=== PATIENT | male | born 1955 | race Caucasian/White ===

== ENCOUNTER 2024-12-05 14:00 | Outpatient (RCR) | payer SELFPAY ==
[2024-11-29 13:20] VITALS: BP 136/73; PULSE 79; RESP 16; TEMP 35.9; BMI 27.7
--- NOTE | 2024-11-30 20:50 | PCM.WC.HP ---
History of Present Illness Date of Service: 11/29/24 Chief Complaint: Open wound of the right pretibial surface History of Wound: This is a 69-year-old generally healthy male who was in his normal state of health until mid September 2024. He sustained an injury to the right pretibial surface as a result of a fall off of a ladder. As result of the fall, he sustained trauma to the right pretibial surface. The patient did not seek medical attention until approximately one week later. One week following his injury, the patient presented to [facility] Emergency Department for evaluation due to increasing pain at the site. The skin was largely intact, but for ecchymosis and a superficial laceration, and a large amount of subcutaneous swelling and fluctuance. Initial clinical impression was that of the subcutaneous hematoma. A CT scan was obtained, which demonstrated soft tissue swelling and did not demonstrate any evidence of necrotizing fasciitis, the underlying bone was satisfactory. Blood work was obtained, the results of which are as follows: White blood count 8.1, hemoglobin 15.1, hematocrit 43.4, platelets 287,000, sodium 139, potassium 3.6, chloride 104, BUN 18, creatinine 0.85, calcium 9.5, glucose 99, AST 15, ALT 26, alkaline phosphatase 98, total protein 7.4, albumin 3.9, total bilirubin 0.8. The patient then underwent incision and drainage of the site under local anesthesia. A 2 cm incision was made over the most fluctuant area of the wound, and a small amount of blood and blood clot were removed. The cavity was then packed with about 12 inches of quarter inch iodoform, and a dressing was applied. Patient was advised to remain hospitalized, but elected to return home. A prescription was issued for oral doxycycline for a 7-day course. The patient and his have been using homeopathic products and treatment for the patient's wound. They describe the use of herbs and blood poisoning salve. The patient is not a smoker he has a history of right inguinal hernia repair. He denies a history of myocardial infarction, congestive heart failure, hypertension, cerebrovascular accident, diabetes mellitus, pulmonary disease, renal disease, and thyroid disease. 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 Home Medications ?Medication ?Instructions ?Recorded ?Last Taken ?Type doxycycline hyclate 100 mg tablet 100 mg PO BID 11/24/24 Unknown History naproxen 500 mg tablet 500 mg PO BID 11/29/24 Unknown History oxycodone-acetaminophen 5 mg-325 1 tab PO Q6H PRN PRN pain 11/29/24 Unknown History mg tablet tamsulosin 0.4 mg capsule 0.4 mg PO QHS 11/29/24 Unknown History Allergy/AdvReac Type Severity Reaction Status Date / Time No Known Allergies Allergy Verified 11/29/24 13:17 Surgical History History of right inguinal hernia repair Social History Smoking Status: Never smoker Vital Signs Vital Signs Vital Signs: Weight Weight: 172 lb Body Mass Index (BMI) 27.7 Physical Exam Const alert, oriented x3, no apparent distress, average body habitus, no limitations, healthy appearing and well nourished Constitutional Narrative: The patient's BMI is 27.8. General Appearance: cooperative, comfortable, well kempt and well developed Orientation / Consciousness: awake, oriented to person, oriented to place and oriented to time Exam Limitations: no limitations HEENT normocephalic and head/scalp atraumatic Head and Scalp: normal to inspection, normocephalic and atraumatic Face and Sinus: normal facial exam Nose: external nose normal External Ear: external ears normal Eyes EOMs intact bilaterally General Eye: normal appearance of both eyes Neck full ROM Resp normal respiratory effort, normal air movement, no retractions and no use of accessory muscles Effort and Inspection: able to speak in complete sentences Extremity no calf tenderness General Extremity: Negative for clubbing or cyanosis Skin Wound Narrative: A large open wound is noted on the patient's right pretibial surface. The wound appears to extend through all layers of the dermis, subcutaneous tissue, down to muscle. There is a moderate amount of nonviable,necrotic tissue. There is no obvious sign of infection or cellulitis. Wound margins are not well beveled there is extensive undermining from the 9 o'clock position to the 3 o'clock position, and most prominent at the 1 o'clock position. Wound dimensions and undermining dimensions are documented elsewhere. The underlying muscle/fascia appear to be largely intact and devoid of significant necrosis. Neuro oriented x3, CN's II-XII intact bilaterally, moves all extremities, no focal motor deficits and no sensory deficits noted Sensorium / Orientation: awake, alert, oriented to person, oriented to place and oriented to time Speech: speech normal Psych Appearance: grossly normal and appropriate Attitude: calm Activity / Motor Behavior: appropriate eye contact Speech: normal speech Mood & Affect: euthymic mood Thought Process: normal thought process Thought Content: normal thought content Attention / Concentration: attention grossly intact Debridement Note Debridement Note Wound debrided: Right pretibial wound Laterality: Right Type of Debridement: Excisional debridement Anesthesia Used: 5% Lidocaine Gel and Cetacaine Depth: Down to and including healthy tissue and to muscle Percentage of wound debrided: 100 Instrument Used: 5mm curette Tissue Removed: Nonviable, necrotic tissue and bioburden Severity: Fat Layer Exposed Amount of bleeding with debridement: Mild Bleeding Controlled with: Compression and gauze Patient tolerated procedure: Patient tolerated procedure well Debridement Free Text: The debridement extended through all layers of the dermis, through the subcutaneous tissues, and down to muscle/fascia. A swab was obtained for aerobic and anaerobic bacterial growth. Post-Debridement Measurements and Additional Note: Post-Debridement Measurements/Treatment - Nurse 1 - General Ulcer Assessment Start: 11/29/24 13:17 Freq: Status: Active Protocol: [email or web address] Activity Type Activity Date Activity User E-sign Co-sign Detail Recorded Client Recorded Date Recorded By Document 11/29/24 13:20 [id number] 11/29/24 13:27 11/29/24 13:20 - Today's Visit Information Type of service Initial Visit Arrival Mode Ambulatory Accompanied by Patient Identification Verified (Name & Yes ) Height and Weight Height 5 ft 6 in Weight 172 lb Weight in Pounds 172.0 lbs Body Mass Index (BMI) 27.7 BMI Classification Overweight Vital Signs Temperature (97.8 F-99.1 F) 96.6 F L Temperature Source Temporal Pulse Rate (60-100) 79 Pulse Location Monitor Respiratory Rate (12-18) 16 Respiratory rate source Observation Oxygen Delivery Method Room Air Blood Pressure (90/60-120/80) 136/73 H Blood Pressure Mean 94 Source Monitor Position Semi-Fowlers Blood Pressure Location Left Arm History Since Last Visit- (Skip if this is Patient's initial visit) Left Footwear Regular Shoe Right Footwear Regular Shoe Pain Scale: 0-10 Numeric Is Patient Pain Free? No rt curran -Intensity 7 -Alleviating Factors/Interventions Medication, Medicate when due Communication Assessment Preferred language [place] Environmental Protection Economist Required No Able to Read Yes Able to Write Yes Communication Tools None Caregiver Communication Skills No Impairment Impairment Right Hearing Abillity Normal Left Hearing Abillity Normal Visual Assistive Devices Glasses Teaching Assessment Preferences Verbal,Written, Demonstration Barriers to Learning None Readiness To Learn Excellent Willingness to Engage in Self Management High Activies Readiness to Engage in Self Management High Activities Anxiety Level Calm Cooperation Cooperative Perception Coherent Interest in Health Problem Asks Questions Education Importance Acknowledges Need Does Patient Smoke tobacco or other Yes substances Smoking Status Never smoker Is Patient Diabetic No Functional Assessment Recent Decline in Ability to Perform Denies Any Declines Culture/Religion/[employer] Technical Lead Senior Developer Cultural/Religion Needs that may affect No Treatment Plan Would you allow our hospital casting and locker room servicer to No meet you for the purpose of spiritual/ emotional support? [employer] Technical Lead Senior Developer to contact place of holiness No WC - Nurse 1 - General Ulcer Measurement Start: 11/29/24 13:17 Freq: Status: Active Protocol: Activity Type Activity Date Activity User E-sign Co-sign Detail Recorded Client Recorded Date Recorded By Document 11/29/24 13:20 [id number] 11/29/24 13:27 11/29/24 13:20 Wound Center Nurse 1 #1 R Curran -Current Size (cm) - Length 3 -Current Size (cm) - Width 2.6 -Current Size (cm) - Depth 1.4 -Total Square Cm 7.8 -Date of Last Picture (Recall this 11/29/24 field) -Exudate Amt Medium -Exudate Type Serosanguineous -Wound Margin Distinct, Outline Attached -Granulation Amt Large (67-100%) -Granulation Quality [place] -Necrosis Amt Medium (34-66%) -Necrotic Tissue Type Adherent Slough -Texture (Katerin-wound Skin Appearance) Assessed -Moisture (Katerin-wound Skin Appearance) Assessed -Color (Katerin-wound Skin Appearance) Assessed, Erythema -Temperature (Katerin-wound Skin No Abnormality Appearance) (Pt Warm) -Tenderness on Palpation (Katerin-wound No Skin Appearance) -Ulcer Cleansing Soap and Water -Foul Odor after Cleansing No -Anesthetic Used 4% Lidocaine Solution - Nurse 2 - General Ulcer CM Notes Start: 11/29/24 13:17 Freq: Status: Active Protocol: Activity Type Activity Date Activity User E-sign Co-sign Detail Recorded Client Recorded Date Recorded By Document 11/29/24 14:02 [id number] 11/29/24 14:13 11/29/24 14:02 Wound Center Nurse 2 -Time 14:02 -Correct Patient Yes -Correct Side, Site, Position Yes -Correct Procedure Yes -Procedure Performed Yes -Type of Procedure Debridement -Clinical Debridement Muscle / Fascia -Tissue Removed Muscle -Post Debridement (cm) - Length 3.0 -Post Debridement (cm) - Width 2.7 -Post Debridement (cm) - Depth 1.5 -Total Square (Post) (cm) 8.10 -Area of Debridement (cm) - Length 3.0 -Area of Debridement (cm) - Width 2.7 -Total Square (Area) (cm) 8.10 -Tunneling Yes -Tunneling Position (O'clock) 12 -Tunneling Distance (cm) 1.5 -Tunneling Position #2 (O'clock) 9 -Tunneling Distance #2 (cm) 1.1 -Undermining/Tunneling Yes -Undermining/Tunneling Starts (O'clock 3 ) -Maximum Distance (cm) 1 -Undermining/Tunneling Starts #2 (O' 1 clock) -Maximum Distance #2 (cm) 3.5 -Wound/Ulcer Outcome Not Healed -Ulcer Cleansing Rinsed/ Irrigated with Saline -Foul Odor after Cleansing No -Bioengineered Tissue No -Bleeding Controlled with Pressure -Treatment Response Procedure Tolerated Well -Offloading No -Debridement - Muscle / Fascia, 1st Yes 20sq cm Pain Scale: 0-10 Numeric Is Patient Pain Free? Yes - Nurse 3 - General Ulcer D/C NN Start: 11/29/24 13:17 Freq: Status: Active Protocol: Activity Type Activity Date Activity User E-sign Co-sign Detail Recorded Client Recorded Date Recorded By Document 11/29/24 14:36 [id number] 11/29/24 14:36 11/29/24 14:36 Wound Care Center Nurse 3 #1 R Curran -Primary Dressing Applied Hysept,Nugauze, Plain 1/2in -Primary Dressing Covered/Secured with Dry Gauze,Dry Gauze & Roll Gauze,Secured with Tape -Hysept 1 -Nugauze, Plain 1/2in 1 Pain Scale: 0-10 Numeric Is Patient Pain Free? 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: CODE(S): L97.915 - Non-pressure chronic ulcer of unspecified part of right lower leg with muscle involvement without evidence of necrosis (2) Wound of right leg: CODE(S): S81.801A - Unspecified open wound, right lower leg, initial encounter QUALIFIERS: Encounter type: initial encounter Qualified Code(s): S81.801A - Unspecified open wound, right lower leg, initial encounter (3) Cellulitis of right leg: CODE(S): L03.115 - Cellulitis of right lower limb (4) History of right inguinal hernia repair: CODE(S): Z98.890 - Other specified postprocedural states; Z87.19 - Personal history of other diseases of the digestive system PLAN: Plan This is a generally healthy 69-year-old male who sustained an injury to his right pretibial surface as a result of a fall off of a ladder. He sustained blunt trauma to the area, which appears to have resulted in a sizable hematoma. The overlying skin, it appears, remained largely intact. Approximately 1 week following his injury, due to increasing pain and discomfort in the area, the patient presented to the Emergency Department at [facility], where an underlying hematoma was incised and drained. It appears as though only limited blood clots were removed from the hematoma cavity. The site was packed quarter-inch iodoform, and the patient was discharged with a one-week prescription for oral doxycycline. Since the patient's evaluation in the Emergency Department, he and his have been using homeopathic preparations topically, which they describe as herbs and blood poisoning salve. He was referred to the [facility] for definitive management. Physical examination revealed significant undermining related to the patient's wound. A culture of the wound has been obtained, and the results will be awaited. Initial management is to implement the use of half-inch Nu Gauze packing on a daily basis. The Nu Gauze is to be moistened with Dakins solution. The patient and his have been instructed in the appropriate means of application, and provided the products for initial use. The patient does not have insurance, and he has requested that management entail cost effective modalities. The patient has been instructed to elevate his lower extremities as much as possible, to minimize swelling. Elevation is to be to heart level, or higher. Activity has been encouraged. Prolonged idle sitting has been discouraged. The patient has been provide Tubigrips for daily use, which are to be donned each morning, and worn until bedtime. Because of the extensive undermining, there is concern that healing may not occur in progressive fashion by means of secondary intention. We have discussed the use of negative pressure wound therapy, a wound VAC, although the cost may be prohibitive for the patient. Alternatively, we are to seek consultation with Dr. Lico Fernandes, Plastic Surgeon, for his evaluation and recommendations. It appears as though there may be an indication for surgical unroofing of the undermined areas, which will then allow for healing by secondary intention, and facilitate the possible use cellular tissue products. Once again, expenses may be prohibitive, considering the patient's lack of health insurance. We are to await Dr. Fernandes's recommendations. Total time: 48 minutes
--- NOTE | 2024-12-01 10:28 | WC ---
PHOTO 11/29/24 RIGHT LOAIZA
[2024-12-05 14:25] VITALS: BP 120/86; PULSE 86; RESP 16; TEMP 36.5; BMI 27.7
--- NOTE | 2024-12-06 10:01 | PCM.WC.PN ---
History of Present Illness Date of Service: 12/05/24 Chief Complaint: Open wound of the right pretibial surface History of Wound: This is a 69-year-old generally healthy male who was in his normal state of health until mid September 2024. He sustained an injury to the right pretibial surface as a result of a fall off of a ladder. As result of the fall, he sustained trauma to the right pretibial surface. The patient did not seek medical attention until approximately one week later. One week following his injury, the patient presented to [facility] Emergency Department for evaluation due to increasing pain at the site. The skin was largely intact, but for ecchymosis and a superficial laceration, and a large amount of subcutaneous swelling and fluctuance. Initial clinical impression was that of the subcutaneous hematoma. A CT scan was obtained, which demonstrated soft tissue swelling and did not demonstrate any evidence of necrotizing fasciitis, the underlying bone was satisfactory. Blood work was obtained, the results of which are as follows: White blood count 8.1, hemoglobin 15.1, hematocrit 43.4, platelets 287,000, sodium 139, potassium 3.6, chloride 104, BUN 18, creatinine 0.85, calcium 9.5, glucose 99, AST 15, ALT 26, alkaline phosphatase 98, total protein 7.4, albumin 3.9, total bilirubin 0.8. The patient then underwent incision and drainage of the site under local anesthesia. A 2 cm incision was made over the most fluctuant area of the wound, and a small amount of blood and blood clot were removed. The cavity was then packed with about 12 inches of quarter inch iodoform, and a dressing was applied. Patient was advised to remain hospitalized, but elected to return home. A prescription was issued for oral doxycycline for a 7-day course. The patient and his have been using homeopathic products and treatment for the patient's wound. They describe the use of herbs and blood poisoning salve. The patient is not a smoker he has a history of right inguinal hernia repair. He denies a history of myocardial infarction, congestive heart failure, hypertension, cerebrovascular accident, diabetes mellitus, pulmonary disease, renal disease, and thyroid disease. Subjective Subjective Current encounter, 05 Dec 2024: Patient doing well overall with dressing changes. No fevers or chills. Objective Data Objective Data Vital Signs: Vital Signs Temp Pulse Resp BP O2 Del Method 97.7 F L 86 16 120/86 H Room Air 12/05/24 14:25 12/05/24 14:25 12/05/24 14:25 12/05/24 14:25 11/29/24 13:20 Oxygen Delivery Method Room Air Weight: 172 lb Body Mass Index (BMI) 27.7 Lab / Micro Data Micro: Microbiology 11/29/24 14:00 Ulcer, Decubitus - Leg, Right Gram Stain - Final 11/29/24 14:00 Ulcer, Decubitus - Leg, Right Wound Culture - Final Proteus mirabilis Klebsiella aerogenes Enterobacter cloacae complex 11/29/24 14:00 Ulcer, Decubitus - Leg, Right Anaerobic Culture - Final No anaerobic bacteria isolated. Charges/Coding Visit Charges Office Visits / Consults: 99376 OV L3 New 30min Procedures Integumentary [id number]: [id number] Mimi musc/fascia 20 sq cm/< (With 25 modifier) Physical Exam Extremity no calf tenderness General Extremity: Negative for clubbing or cyanosis Skin Wound Narrative: Right pretibial wound midshaft tibia, no exposed bone (exposed underlying fascia). No induration or fluid collections, there is necrotic material at the base. There is some undermining from the 9 o'clock position to the 3 o'clock position, and most prominent at the 1 o'clock position. The wound measures 2.9 x 2.9 cm and is 1.3 cm deep. Debridement Note Debridement Note Wound debrided: Right pretibial wound Laterality: Right Wound Grade/Stage: Stage III Type of Debridement: Excisional debridement Anesthesia Used: 4% Lidocaine Solution and - (10 cc of 1% lidocaine with 1-200,000 epinephrine) Depth: to muscle (To the fascia overlying the muscle at the base of the wound) Percentage of wound debrided: 100 Instrument Used: 7mm curette, Forceps and - (Scissors for sharp excision) Tissue Removed: Fibrinous exudate and necrotic fascia at the muscle layer Severity: Necrosis of Muscle (There is necrotic debris at the muscle level at the base of the wound) Amount of bleeding with debridement: Moderate Bleeding Controlled with: Compression and gauze Patient tolerated procedure: Patient tolerated procedure well Post-Debridement Measurements and Additional Note: Post-Debridement Measurements/Treatment WC - Nurse 1 - General Ulcer Assessment Start: 11/29/24 13:17 Freq: Status: Active Protocol: WC.LOWEXT Activity Type Activity Date Activity User E-sign Co-sign Detail Recorded Client Recorded Date Recorded By Document 11/29/24 13:20 KW [id number] 11/29/24 13:27 KW Document 12/05/24 14:25 JF [id number] 12/05/24 14:33 JF 11/29/24 12/05/24 13:20 14:25 WC - Today's Visit Information Type of service Initial Visit Follow-up Visit (Physician/ACQUISITIONS LIBRARIAN ) Arrival Mode Ambulatory Ambulatory Accompanied by Patient Identification Verified (Name & Yes No ) Patient Requires Transmission-Based No Precautions Height and Weight Height 5 ft 6 in Weight 172 lb Weight in Pounds 172.0 lbs Body Mass Index (BMI) 27.7 27.7 BMI Classification Overweight Overweight Vital Signs Temperature (97.8 F-99.1 F) 96.6 F L 97.7 F L Temperature Source Temporal Temporal Pulse Rate (60-100) 79 86 Pulse Location Monitor Monitor Respiratory Rate (12-18) 16 16 Respiratory rate source Observation Observation Oxygen Delivery Method Room Air Blood Pressure (90/60-120/80) 136/73 H 120/86 H Blood Pressure Mean (mm Hg) 94 97 Source Monitor Monitor Position Semi-Fowlers Semi-Fowlers Blood Pressure Location Left Arm Right Arm History Since Last Visit- (Skip if this is Patient's initial visit) Have you changed medications since your No last visit? Any new allergies or adverse reactions No Had a fall/change in ADL's that may No increase risk of falls Signs or symptoms of abuse and/or No neglect since last visit Have you been in the hospital since your No last visit? Has dressing in place as prescribed Yes Has compression in place as prescribed Yes Has offloadiing in place as prescribed N/A Experienced any changes in pain level or No management Left Footwear Regular Shoe Regular Shoe Right Footwear Regular Shoe Regular Shoe Pain Scale: 0-10 Numeric Is Patient Pain Free? No Yes rt curran -Intensity 7 -Alleviating Factors/Interventions Medication, Medicate when due Communication Assessment Preferred language Albanian Magnetic Observer Required No Able to Read Yes Able to Write Yes Communication Tools None Caregiver Communication Skills No Impairment Impairment Right Hearing Abillity Normal Left Hearing Abillity Normal Visual Assistive Devices Glasses Teaching Assessment Preferences Verbal,Written, Demonstration Barriers to Learning None Readiness To Learn Excellent Willingness to Engage in Self Management High Activies Readiness to Engage in Self Management High Activities Anxiety Level Calm Cooperation Cooperative Perception Coherent Interest in Health Problem Asks Questions Education Importance Acknowledges Need Does Patient Smoke tobacco or other Yes substances Smoking Status Never smoker Is Patient Diabetic No Functional Assessment Recent Decline in Ability to Perform Denies Any Declines Culture/Roman Catholic/Infection Control Specialist Cultural/Roman Catholic Needs that may affect No Treatment Plan Would you allow our hospital manager of revenue to No meet you for the purpose of spiritual/ emotional support? Infection Control Specialist to contact place of [facility] No WC - Nurse 1 - General Ulcer Measurement Start: 11/29/24 13:17 Freq: Status: Active Protocol: Activity Type Activity Date Activity User E-sign Co-sign Detail Recorded Client Recorded Date Recorded By Document 11/29/24 13:20 KW [id number] 11/29/24 13:27 KW Document 12/05/24 14:25 JF [id number] 12/05/24 14:33 JF 11/29/24 12/05/24 13:20 14:25 Wound Center Nurse 1 #1 R Curran -Combined with other wound No -Current Size (cm) - Length 3 2.8 -Current Size (cm) - Width 2.6 2.8 -Current Size (cm) - Depth 1.4 1.2 -Total Square Cm 7.8 7.84 -Date of Last Picture (Recall this 11/29/24 field) -Photo Taken No -Epithelialization Small 1-33% -Tunneling No -Undermining/Tunneling No -Circular Undermining No -Exudate Amt Medium Large -Exudate Type Serosanguineous Serosanguineous -Wound Margin Distinct, Flat & Intact Outline Attached -Granulation Amt Large (67-100%) Large (67-100%) -Granulation Quality [place] Red -Slough/Fibrin Yes -Necrosis Amt Medium (34-66%) Small (1-33%) -Necrotic Tissue Type Adherent Slough Adherent Slough -Structure Exposed N/A -Texture (Katerin-wound Skin Appearance) Assessed Assessed -Moisture (Katerin-wound Skin Appearance) Assessed Assessed,Dry/ Scaly -Color (Katerin-wound Skin Appearance) Assessed, Assessed Erythema -Temperature (Katerin-wound Skin No Abnormality No Abnormality Appearance) (Pt Warm) (Pt Warm) -Tenderness on Palpation (Katerin-wound No No Skin Appearance) -Ulcer Cleansing Soap and Water Soap and Water -Foul Odor after Cleansing No No -Anesthetic Used 4% Lidocaine 5% Lidocaine Solution Gel Lower Limb Edema Present Yes Right Calf (cm) 39 Right Ankle (cm) 24.0 - Nurse 2 - General Ulcer CM Notes Start: 11/29/24 13:17 Freq: Status: Active Protocol: Activity Type Activity Date Activity User E-sign Co-sign Detail Recorded Client Recorded Date Recorded By Document 11/29/24 14:02 [id number] 11/29/24 14:13 Document 12/05/24 15:17 [id number] 12/05/24 15:23 11/29/24 12/05/24 14:02 15:17 Wound Center Nurse 2 #1 R Curran -Time 14:02 15:18 -Correct Patient Yes Yes -Correct Side, Site, Position Yes Yes -Correct Procedure Yes Yes -Procedure Performed Yes Yes -Type of Procedure Debridement Debridement -Clinical Debridement Muscle / Fascia Muscle / Fascia -Tissue Removed Muscle Muscle -Post Debridement (cm) - Length 3.0 2.9 -Post Debridement (cm) - Width 2.7 2.9 -Post Debridement (cm) - Depth 1.5 1.3 -Total Square (Post) (cm) 8.10 8.41 -Area of Debridement (cm) - Length 3.0 2.9 -Area of Debridement (cm) - Width 2.7 2.9 -Total Square (Area) (cm) 8.10 8.41 -Tunneling Yes No -Tunneling Position (O'clock) 12 -Tunneling Distance (cm) 1.5 -Tunneling Position #2 (O'clock) 9 -Tunneling Distance #2 (cm) 1.1 -Undermining/Tunneling Yes No -Undermining/Tunneling Starts (O'clock 3 ) -Maximum Distance (cm) 1 -Undermining/Tunneling Starts #2 (O' 1 clock) -Maximum Distance #2 (cm) 3.5 -Circular Undermining No -Wound/Ulcer Outcome Not Healed Not Healed -Ulcer Cleansing Rinsed/ Rinsed/ Irrigated with Irrigated with Saline Saline -Foul Odor after Cleansing No No -Bioengineered Tissue No No -Bleeding Controlled with Pressure Pressure -Treatment Response Procedure Procedure Tolerated Well Tolerated Well -Offloading No No -Debridement - Muscle / Fascia, 1st Yes Yes 20sq cm Pain Scale: 0-10 Numeric Is Patient Pain Free? Yes Yes WC - Nurse 3 - General Ulcer D/C NN Start: 11/29/24 13:17 Freq: Status: Active Protocol: Activity Type Activity Date Activity User E-sign Co-sign Detail Recorded Client Recorded Date Recorded By Document 11/29/24 14:36 ERIC [id number] 11/29/24 14:36 KW 11/29/24 14:36 Wound Care Center Nurse 3 #1 R Curran -Primary Dressing Applied Hysept,Nugauze, Plain 1/2in -Primary Dressing Covered/Secured with Dry Gauze,Dry Gauze & Roll Gauze,Secured with Tape -Hysept 1 -Nugauze, Plain 1/2in 1 Pain Scale: 0-10 Numeric Is Patient Pain Free? 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 We talked about the wound VAC being an excellent treatment. They would like to defer this treatment at this time, and any operative interventions, as they are self-pay. They would like to continue doing dressing changes which I think is a reasonable option but may take more time. They understand this risk. For now we will plan Dakin's wet-to-dry dressings twice daily. Follow-up in 1 week for another wound check/debridement.
== END 2024-12-24 23:59 | disposition home or self-care (01) ==
LOC: WC 14:00
PROVIDERS: PCP Nurse Practitioner Family; Referring Provider Physician Assistant; Visit Provider Surgery Plastic and Reconstructive Surgery
DX: L97.915 Non-pressure chronic ulcer of unspecified part of right lower leg with muscle involvement without evidence of necrosis (principal); L03.115 Cellulitis of right lower limb; Z98.890 Other specified postprocedural states; S81.801A Unspecified open wound, right lower leg, initial encounter; W11.XXXA Fall on and from ladder, initial encounter
CPT/HCPCS: 11043; 87070; 87075; 87077; 87186; 87205; 99213; G0463